=== PATIENT | male | born 1960 | race Caucasian/White ===

== ENCOUNTER 2018-06-14 10:52 | Outpatient (CLI) | payer OTHER ==
--- NOTE | 2018-06-14 12:21 | ULT ---
RIGHT UPPER QUADRANT ABDOMINAL ULTRASOUND AND HEPATIC DOPPLER: Date: 06/14/18 COMPARISON: None. HISTORY: Elevated LFTs. TECHNIQUE: Multiplanar Herman scale and color Doppler images were obtained in a right upper quadrant abdominal ult rasound. Spectral analysis of the Doppler waveforms of the hepatic and splenic vasculature performed. FINDINGS: The liver demonstrates increased echogenicity without focal lesions or intrahepatic ductal dilatation . The gallbladder has been removed. The common bile duct is normal, measuring 4.0 mm. Normal direction of flow is seen within the haptic and splenic vasculature, which also demonstrated n ormal waveforms. The spleen is normal in size, measuring 11.2 cm. The visualized portions of the pancreas are unremark able. IMPRESSION: Fatty liver. POS: C
== END 2018-06-14 10:53 | disposition home or self-care (01) ==
LOC: SCSULT 10:52
PROVIDERS: ATTEND Physician Assistant Medical
DX: R74.0 Nonspecific elevation of levels of transaminase and lactic acid dehydrogenase [LDH] (principal); K76.0 Fatty (change of) liver, not elsewhere classified
CPT/HCPCS: 76705

== ENCOUNTER 2019-11-25 10:54 | Outpatient (CLI) | payer MEDICARE, MEDICAID ==
--- NOTE | 2019-11-25 11:50 | ULT ---
US Hepatic Doppler HISTORY: GERD, hematemesis, chronic hepatitis C, unspecified cirrhosis of liver COMPARISON: 06/14/2018 FINDINGS: There is increased and coarse echogenicity of the liver without focal mass or intrahepatic ductal dil atation. The patient is post cholecystectomy. The spleen and pancreas are normal. The spleen measures 11.4 cm in length. The common duct measures 5 mm in diameter. No free fluid is seen. There is normal flow and spectral waveforms in the hepatic, splenic and portal vasculature. IMPRESSION: Fatty liver.
== END 2019-11-25 10:55 | disposition home or self-care (01) ==
LOC: SCSULT 10:54
PROVIDERS: ATTEND Internal Medicine Gastroenterology
DX: K74.60 Unspecified cirrhosis of liver (principal); K21.9 Gastro-esophageal reflux disease without esophagitis; K92.0 Hematemesis; B18.2 Chronic viral hepatitis C; K76.0 Fatty (change of) liver, not elsewhere classified
CPT/HCPCS: 36415; 76705; 80076; 82105; 85025

== ENCOUNTER 2020-10-07 12:41 | Outpatient (CLI) | payer MEDICARE, MEDICAID | END 2020-10-07 12:42 | disposition home or self-care (01) | LOC: BICRAD 12:41 | PROVIDERS: ATTEND Internal Medicine Pulmonary Disease | DX: R06.00 Dyspnea, unspecified (principal) | CPT/HCPCS: 71046 ==

== ENCOUNTER 2023-02-13 10:20 | Outpatient (CLI) | payer MEDICARE, OTHER | END 2023-02-13 10:21 | disposition home or self-care (01) | LOC: BICRAD 10:20 | PROVIDERS: ATTEND Internal Medicine Gastroenterology | DX: Z12.11 Encounter for screening for malignant neoplasm of colon (principal); K21.9 Gastro-esophageal reflux disease without esophagitis; K74.60 Unspecified cirrhosis of liver | CPT/HCPCS: 71046 ==